=== PATIENT | female | born 1975 | race Two or more races ===

== ENCOUNTER 2017-11-13 10:03 | Emergency (ER) | payer MEDICAID ==
[2017-11-13] MEDS ORDERED: Ondansetron 4 MG/2 ML SDV IVPUSH ONE (10:23)
[2017-11-13] MEDS ORDERED: Sodium Chloride 0.9% 1,000 ML IV ONE (10:23)
--- NOTE | 2017-11-13 10:23 | EDM.PDOC ---
ED HPI GENERAL MEDICAL PROBLEM - General Chief Complaint: Headache Stated Complaint: HEADACHES Time Seen by Provider: 11/13/17 10:09 Source of Information: Reports: Patient History Limitations: Reports: No Limitations - History of Present Illness INITIAL COMMENTS - FREE TEXT/NARRATIVE: HISTORY AND PHYSICAL: History of present illness: Patient is a 42-year-old female who presents to the emergency room with complaints of migraine headaches. She states that every day for the past month she has had a constant migraine headache which is progressively getting worse. She been using [id number] migraine medications without much relief. She has photophobia, noise sensitivity and nauseated with smells. Denies any previous history of migraines. No familial history of migraines Review of systems: As per history of present illness and below otherwise all systems reviewed and negative. Past medical history: As per history of present illness and as reviewed below otherwise noncontributory. Surgical history: As per history of present illness and as reviewed below otherwise noncontributory. Social history: No reported history of drug or alcohol abuse. Family history: As per history of present illness and as reviewed below otherwise noncontributory. Physical exam: Gen.: Well-developed and well nourished 42-year-old female. Alert and oriented. Nontoxic appearing and in no acute distress. HEENT: Atraumatic, normocephalic, pupils reactive, negative for conjunctival pallor or scleral icterus, mucous membranes moist, throat clear, neck supple, nontender, trachea midline. No meningeal signs. No drooling or trismus. Lungs: Clear to auscultation, breath sounds equal bilaterally, chest nontender. Heart: S1S2, regular, negative for clicks, rubs, or JVD. Abdomen: Soft, nondistended, nontender. Negative for masses or hepatosplenomegaly. Negative for costovertebral tenderness. Pelvis: Stable nontender. Genitourinary: Deferred. Rectal: Deferred. Extremities: Atraumatic, moves all extremities per self without difficulty or deficits. Fully ambulatory without unsteady gait. Neurovascular unremarkable. Neuro: Awake, alert, oriented. Cranial nerves II through XII unremarkable. Cerebellum unremarkable. Motor and sensory unremarkable throughout. Exam nonfocal. Skin: Intact, warm, dry. No lesions or rashes noted. Head CT and lab work is within normal limits. Patient's headache has improved. Patient is very thin/petite. Blood pressures have been high 90s over 50s to 60s. The patient states that this is her normal BP range. She is comfortable going home. We will prescribe her Fiorinal and Zofran as rescue medications for home. We discussed in great leg the importance of her following up with her primary care provider. She is up here visiting her from [place]. She states she will see her primary doctor when she returns home. She denies any further questions at this time and is agreeable to plan of care. Diagnostics: CBC, CMP, Head CT Therapeutics: IV fluids, Toradol, Benadryl, Reglan, Zofran Impression: Migraine headache Plan: 1. Please take the rest of the day to rest. A prescription for Fiorinal and Zofran have been given to you. These are rescue medications for migraine headache. For further prescription/refill you will need to see your primary care doctor. 2. Please follow up with her primary care doctor within the next week. Return to the ED as needed and as discussed. Definitive disposition and diagnosis as appropriate pending reevaluation and review of above. 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 - Physical Exam Exam: See Below (See dictation) Course - Vital Signs Last Recorded V/S: Last Vital Signs Temp 97.6 F 11/13/17 10:11 Pulse 59 L 11/13/17 11:33 Resp 16 11/13/17 11:33 BP 95/58 L 11/13/17 11:33 Pulse Ox 100 11/13/17 11:33 - Orders/Labs/Meds Labs: Laboratory Tests 11/13/17 11/13/17 Range/Units 10:48 10:48 WBC 3.80 L (4.0-11.0) K/uL RBC 3.71 L (4.30-5.90) M/uL Hgb 11.6 L (12.0-16.0) g/dL Hct 34.3 L (36.0-46.0) % MCV 92.5 (80.0-98.0) fL MCH 31.3 (27.0-32.0) pg MCHC 33.8 (31.0-37.0) g/dL RDW Std Deviation 46.7 (28.0-62.0) fl RDW Coeff of [place]qu[place] 14 (11.0-15.0) % Plt Count 185 (150-400) K/uL MPV 10.40 (7.40-12.00) fL Neut % (Auto) 70.8 (48.0-80.0) % Lymph % (Auto) 23.2 (16.0-40.0) % [place] % (Auto) 5.0 (0.0-15.0) % Eos % (Auto) 0.5 (0.0-7.0) % Baso % (Auto) 0.5 (0.0-1.5) % Neut # (Auto) 2.7 (1.4-5.7) K/uL Lymph # (Auto) 0.9 (0.6-2.4) K/uL Deuel # (Auto) 0.2 (0.0-0.8) K/uL Eos # (Auto) 0.0 (0.0-0.7) K/uL Baso # (Auto) 0.0 (0.0-0.1) K/uL Nucleated RBC % 0.0 /100WBC Nucleated RBCs # 0 K/uL Sodium 140 (136-145) mmol/L Potassium 4.3 (3.5-5.1) mmol/L Chloride 109 H (98-107) mmol/L Carbon Dioxide 24.6 (21.0-32.0) mmol/L BUN 10 (7.0-18.0) mg/dL Creatinine 0.8 (0.6-1.0) mg/dL Est Cr Clr Drug Dosing 75.01 mL/min Estimated GFR (MDRD) > 60.0 ml/min Glucose 81 (74-106) mg/dL Calcium 8.1 L (8.5-10.1) mg/dL Total Bilirubin 0.8 (0.2-1.0) mg/dL AST 25 (15-37) IU/L ALT 32 (14-63) IU/L Alkaline Phosphatase 38 L (46-116) U/L Total Protein 6.1 L (6.4-8.2) g/dL Albumin 2.9 L (3.4-5.0) g/dL Globulin 3.2 (2.0-3.5) g/dL Albumin/Globulin Ratio 0.9 L (1.3-2.8) Meds: Medications Discontinued Medications Generic Name Dose Route Start Last Admin Trade Name Freq PRN Reason Stop Dose Admin Diphenhydramine HCl 50 mg 11/13/17 10:24 11/13/17 11:05 Benadryl IVPUSH 11/13/17 10:25 50 mg ONETIME ONE Administration Sodium Chloride 1,000 mls @ 999 mls/hr 11/13/17 10:23 11/13/17 10:53 Normal Saline IV 11/13/17 11:23 999 mls/hr STAT ONE Administration Ketorolac Tromethamine 30 mg 11/13/17 10:24 11/13/17 10:59 Toradol IVPUSH 11/13/17 10:25 30 mg ONETIME ONE Administration Metoclopramide HCl 10 mg 11/13/17 10:24 11/13/17 11:02 Reglan IVPUSH 11/13/17 10:25 10 mg ONETIME ONE Administration Ondansetron HCl 4 mg 11/13/17 10:23 11/13/17 10:55 Zofran IVPUSH 11/13/17 10:24 4 mg ONETIME ONE Administration Departure - Departure Time of Disposition: 11:53 Disposition: Home, Self-Care 01 Clinical Impression: Migraine - Discharge Information Instructions: Migraine Headache, [id number] Referrals: PCP,None [Primary Care Provider] - Forms: ED Department Discharge Additional Instructions: My general discharge The following information is given to patients seen in the emergency department who are being discharged to home. This information is to outline your options for follow-up care. We provide all patients seen in our emergency department with a follow-up referral. The need for follow-up, as well as the timing and circumstances, are variable depending upon the specifics of your emergency department visit. If you don't have a primary care physician on staff, we will provide you with a referral. We always advise you to contact your personal physician following an emergency department visit to inform them of the circumstance of the visit and for follow-up with them and/or the need for any referrals to a consulting specialist. The emergency department will also refer you to a specialist when appropriate. This referral assures that you have the opportunity for follow-up care with a specialist. All of these measure are taken in an effort to provide you with optimal care, which includes your follow-up. Under all circumstances we always encourage you to contact your private physician who remains a resource for coordinating your care. When calling for follow-up care, please make the office aware that this follow-up is from your recent emergency room visit. If for any reason you are refused follow-up, please contact the [facility] Emergency Department at and asked to speak to the emergency department charge nurse. [facility] [address] [place] [id number] 1. Please take the rest of the day to rest. A prescription for Fiorinal and Zofran have been given to you. These are rescue medications for migraine headache. For further prescription/refill you will need to see your primary care doctor. 2. Please follow up with her primary care doctor within the next week. Return to the ED as needed and as discussed.
[2017-11-13] MEDS ORDERED: Ketorolac 30 MG/ML SDV IVPUSH ONE (10:24)
[2017-11-13] MEDS ORDERED: Metoclopramide 10 MG/2 ML SDV IVPUSH ONE (10:24)
[2017-11-13] MEDS ORDERED: diphenhydrAMINE 50 MG/ML SDV IVPUSH ONE (10:24)
[2017-11-13 11:16] LABS: CHLORIDE,CL 109 mmol/L (98-107); SODIUM,NA 140 mmol/L (136-145)
--- NOTE | 2017-11-13 11:50 | CT ---
EXAMINATION: Non contrast CT head. Coronal and sagittal reformats. HISTORY: Pain FINDINGS: No evidence of intra or extra axial hemorrhage, mass, midline shift, hydrocephalus or edema. Orbits and globes are symmetric. No hypoattenuation changes in the major vascular territories to suggest acute infarct. No abnormal intracranial calcifications are detected. No evidence of substantial vascular calcificat ions. Paranasal sinuses and mastoid air cells are well aerated without substantial findings. Pituitary fossa appears unremarkable. Calvarium is intact. No evidence of skull fracture. IMPRESSION: No acute intracranial findings.
== END 2017-11-13 12:24 | disposition home or self-care (01) ==
LOC: MW.ED 10:03
DX: G43.909 Migraine, unspecified, not intractable, without status migrainosus (principal); Z88.2 Allergy status to sulfonamides; Z88.1 Allergy status to other antibiotic agents
CPT/HCPCS: 70450; 80053; 85025; 96361; 96374; 96375; 99284; J1200; J1885; J2405; J2765; J7040; 99283

== ENCOUNTER 2017-11-18 11:06 | Emergency (ER) | payer MEDICAID ==
[2017-11-18] MEDS ORDERED: Ketorolac 30 MG/ML SDV IVPUSH ONE (11:15)
[2017-11-18] MEDS ORDERED: Sodium Chloride 0.9% 1,000 ML IV ONE (11:15)
[2017-11-18] MEDS ORDERED: Metoclopramide 10 MG/2 ML SDV IV ONE (11:15)
[2017-11-18] MEDS ORDERED: diphenhydrAMINE 50 MG/ML SDV IVPUSH ONE (11:15)
[2017-11-18] MEDS ORDERED: Ondansetron 4 MG/2 ML SDV IVPUSH ONE (11:15)
--- NOTE | 2017-11-18 11:49 | EDM.PDOC ---
ED HPI GENERAL MEDICAL PROBLEM - General Chief Complaint: Headache Stated Complaint: MIGRANE/VOMITING Time Seen by Provider: 11/18/17 11:13 Source of Information: Reports: Patient History Limitations: Reports: No Limitations - History of Present Illness INITIAL COMMENTS - FREE TEXT/NARRATIVE: HISTORY AND PHYSICAL: History of present illness: Patient is a 42-year-old female who presents to the emergency room with complaints of migraine headache. She was seen in the emergency room by myself on 11/13/2017. At this time she received IV medications and head CT (negative reading). Upon discharge she was pain free and given a prescription for Fiorinal and Zofran. She states she was pain free for about 24 hours and woke up next day with a mild headache that progressively got worse. She took the Excedrin, Fiorinal and Zofran as directed but felt these medications made it "worse" and caused increased pain and nausea/vomiting. She is here today requesting additional pain management as her prescriptions "didn't work". She denies any recent head injury, trauma or falls. She denies change in vision , fever, chills, chest pain or shortness of breath. Denies any abdominal pain, diarrhea or constipation. States she is "so hungry but can't eat because I vomited everything up" due to nausea from her migraine. She is here from [place] visiting her . She reports she does return home on Friday. Review of systems: As per history of present illness and below otherwise all systems reviewed and negative. Past medical history: As per history of present illness and as reviewed below otherwise noncontributory. Surgical history: As per history of present illness and as reviewed below otherwise noncontributory. Social history: No reported history of drug or alcohol abuse. Family history: As per history of present illness and as reviewed below otherwise noncontributory. Physical exam: General: Developed and well nourished 42-year-old female. Alert and oriented. Nontoxic appearing and in no acute distress. HEENT: Atraumatic, normocephalic, pupils equal and reactive bilaterally, negative for conjunctival pallor or scleral icterus, mucous membranes moist, throat clear, neck supple, nontender, trachea midline. No drooling or trismus noted. No meningeal signs. Photophobia and noise sensitivity. Lungs: Clear to auscultation, breath sounds equal bilaterally, chest nontender. Heart: S1S2, regular rate and rhythm without overt murmur Abdomen: Soft, nondistended, nontender. Negative for masses or hepatosplenomegaly. Negative for costovertebral tenderness. Pelvis: Stable nontender. Genitourinary: Deferred. Rectal: Deferred. Skin: Intact, warm, dry. No lesions or rashes noted. Extremities: Atraumatic, moves all extremities per self without difficulty or deficits, negative for cords or calf pain. Neurovascular unremarkable. Neuro: Awake, alert, oriented. Cranial nerves II through XII unremarkable. Cerebellum unremarkable. Motor and sensory unremarkable throughout. Exam nonfocal. Notes: Did discuss in great detail the need for her to follow up with her primary care provider and likely a neurologist. Sounds as though she has migraine headaches that will require long-term management and/or medication management. Upon discharge the patient is adamant that she be discharged with home medication for her headache pain. I informed her that the management of migraines is not through narcotics and she felt she did not get relief with the Fiorinal, she could discontinue that medication at this time. I will give her Imitrex (Disp #6). Diagnostics: [] Therapeutics: IV fluid, Zofran, Reglan, Toradol, Benadryl Impression: Migraine headache Plan: 1. Please rest the remainder of the day in a dark quiet room. 2. Use your [id number] migraine medications. Zofran was prescribed during her last visit for nausea management. You do not need to continue the Fiorinal. 3. Further management should be done with your primary care provider or a neurologist. Return to the ED as needed and as discussed. Definitive disposition and diagnosis as appropriate pending reevaluation and review of above. Headache Pain Score (Numeric/FACES): 10 - Related Data Allergies Allergy/AdvReac Type Severity Reaction Status Date / Time sulfamethoxazole Allergy Difficulty Verified 11/18/17 11:15 [From ] Breathing trimethoprim [From ] Allergy Difficulty Verified 11/18/17 11:15 Breathing Home Meds: Home Meds Albuterol [Proventil] 2.5 mg INH ASDIRECTED PRN 11/13/17 [History] Fluticasone Propionate [Flovent] BID 11/13/17 [History] Past Medical History Respiratory History: Reports: Asthma Other Gastrointestinal History: pt states they are running tests on her liver back home Genitourinary History: Reports: UTI, Recurrent 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 - Physical Exam Exam: See Below (See dictation) Course - Vital Signs Last Recorded V/S: Last Vital Signs Temp 98.9 F 11/18/17 13:56 Pulse 96 11/18/17 13:56 Resp 16 11/18/17 13:56 BP 99/56 L 11/18/17 13:56 Pulse Ox 96 11/18/17 13:56 - Orders/Labs/Meds Meds: Medications Discontinued Medications Generic Name Dose Route Start Last Admin Trade Name Harpreetq PRN Reason Stop Dose Admin Diphenhydramine HCl 50 mg 11/18/17 11:15 11/18/17 11:57 Benadryl IVPUSH 11/18/17 11:16 50 mg ONETIME ONE Administration Sodium Chloride 1,000 mls @ 999 mls/hr 11/18/17 11:15 11/18/17 11:59 Normal Saline IV 11/18/17 12:15 999 mls/hr STAT ONE Administration Ketorolac Tromethamine 30 mg 11/18/17 11:15 11/18/17 11:57 Toradol IVPUSH 11/18/17 11:16 30 mg ONETIME ONE Administration Metoclopramide HCl 10 mg 11/18/17 11:15 11/18/17 11:58 Reglan IV 11/18/17 11:16 10 mg ONETIME ONE Administration Ondansetron HCl 4 mg 11/18/17 11:15 11/18/17 11:58 Zofran IVPUSH 11/18/17 11:16 4 mg ONETIME ONE Administration Departure - Departure Time of Disposition: 13:02 Disposition: Home, Self-Care 01 Clinical Impression: Migraine - Discharge Information Instructions: Recurrent Migraine Headache, [id number]-[id number] Referrals: PCP,Not In Area [Primary Care Provider] - Forms: ED Department Discharge Additional Instructions: The following information is given to patients seen in the emergency department who are being discharged to home. This information is to outline your options for follow-up care. We provide all patients seen in our emergency department with a follow-up referral. The need for follow-up, as well as the timing and circumstances, are variable depending upon the specifics of your emergency department visit. If you don't have a primary care physician on staff, we will provide you with a referral. We always advise you to contact your personal physician following an emergency department visit to inform them of the circumstance of the visit and for follow-up with them and/or the need for any referrals to a consulting specialist. The emergency department will also refer you to a specialist when appropriate. This referral assures that you have the opportunity for follow-up care with a specialist. All of these measure are taken in an effort to provide you with optimal care, which includes your follow-up. Under all circumstances we always encourage you to contact your private physician who remains a resource for coordinating your care. When calling for follow-up care, please make the office aware that this follow-up is from your recent emergency room visit. If for any reason you are refused follow-up, please contact the [facility] Emergency Department at and asked to speak to the emergency department charge nurse. [facility] Primary Care [address] [place] [id number] [facility] Specialty Care - Neurology Professional Building [address] [place] [address], [address] [place] [address] 1. Please rest the remainder of the day in a dark quiet room. 2. Use your pxzu-[id number] migraine medications. Zofran was prescribed during her last visit for nausea management. You do not need to continue the Fiorinal. 3. Further management should be done with your primary care provider or a neurologist. Return to the ED as needed and as discussed.
== END 2017-11-18 14:01 | disposition home or self-care (01) ==
LOC: MW.ED 11:06
DX: G43.909 Migraine, unspecified, not intractable, without status migrainosus (principal); Z88.2 Allergy status to sulfonamides; Z88.1 Allergy status to other antibiotic agents; Z79.899 Other long term (current) drug therapy
CPT/HCPCS: 96361; 96374; 96375; 99283; J1200; J1885; J2405; J2765; J7040

== ENCOUNTER 2018-02-03 08:45 | Emergency (ER) | payer MEDICAID ==
--- NOTE | 2018-02-03 09:08 | EDM.PDOC ---
ED HPI GENERAL MEDICAL PROBLEM - General Chief Complaint: Genitourinary Problem Stated Complaint: UTI OR EAR INFECTION ISSUES Time Seen by Provider: 02/03/18 08:50 - History of Present Illness INITIAL COMMENTS - FREE TEXT/NARRATIVE: HISTORY AND PHYSICAL: History of present illness: Patient 42-year-old female presents with a concern of frequency and discomfort with urination she denies chills nausea vomiting or back pain she denies Review of systems: As per history of present illness and below otherwise all systems reviewed and negative. Past medical history: As per history of present illness and as reviewed below otherwise noncontributory. Surgical history: As per history of present illness and as reviewed below otherwise noncontributory. Social history: No reported history of drug or alcohol abuse. Family history: As per history of present illness and as reviewed below otherwise noncontributory. Physical exam: HEENT: Atraumatic, normocephalic, pupils reactive, negative for conjunctival pallor or scleral icterus, mucous membranes moist, throat clear, neck supple, nontender, trachea midline. Lungs: Clear to auscultation, breath sounds equal bilaterally, chest nontender. Heart: S1S2, regular, negative for clicks, rubs, or JVD. Abdomen: Soft, nondistended, nontender. Negative for masses or hepatosplenomegaly. Negative for costovertebral tenderness. Pelvis: Stable nontender. Genitourinary: Deferred. Rectal: Deferred. Extremities: Atraumatic, negative for cords or calf pain. Neurovascular unremarkable. Neuro: Awake, alert, oriented. Cranial nerves II through XII unremarkable. Cerebellum unremarkable. Motor and sensory unremarkable throughout. Exam nonfocal. Diagnostics: UA urine culture and sensitivity UCG Therapeutics: None Impression: #1 urinary tract infection Definitive disposition and diagnosis as appropriate pending reevaluation and review of above. back Pain Score (Numeric/FACES): 7 - Related Data Allergies Allergy/AdvReac Type Severity Reaction Status Date / Time sulfamethoxazole Allergy Difficulty Verified 02/03/18 09:01 [From ] Breathing trimethoprim [From ] Allergy Difficulty Verified 02/03/18 09:01 Breathing Home Meds: Home Meds Albuterol [Proventil] 2.5 mg INH ASDIRECTED PRN 11/13/17 [History] Fluticasone Propionate [Flovent] 1 dose INH BID 11/13/17 [History] Past Medical History HEENT History: Reports: None Cardiovascular History: Reports: None Respiratory History: Reports: Asthma Gastrointestinal History: Reports: Other (See Below) Other Gastrointestinal History: pt states they are running tests on her liver back home Genitourinary History: Reports: UTI, Recurrent 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: Musculoskeletal History: Reports: None Neurological History: Reports: Migraines Psychiatric History: Reports: Anxiety Endocrine/Metabolic History: Reports: None Hematologic History: Reports: None Immunologic History: Reports: None Oncologic (Cancer) History: Reports: Bone, Other (See Below) Other Oncologic History: stomach cancer Dermatologic History: Reports: None - Infectious Disease History Infectious Disease History: Reports: Chicken Pox - Past Surgical History Head Surgeries/Procedures: Reports: None HEENT Surgical History: Reports: None Cardiovascular Surgical History: Reports: None Respiratory Surgical History: Reports: None GI Surgical History: Reports: None Female Surgical History: Reports: None Endocrine Surgical History: Reports: None Neurological Surgical History: Reports: None Musculoskeletal Surgical History: Reports: None Dermatological Surgical History: Reports: None Social & Family History - Family History Family Medical History: Noncontributory - Tobacco Use Smoking Status *Q: Never Smoker Second Hand Smoke Exposure: No - Caffeine Use Caffeine Use: Reports: None - Recreational Drug Use Recreational Drug Use: No ED ROS GENERAL - Review of Systems Review Of Systems: ROS reveals no pertinent complaints other than HPI. ED EXAM, GENERAL - Physical Exam Exam: See Below (See dictation) Course - Vital Signs Last Recorded V/S: Last Vital Signs Temp 35.7 C 02/03/18 09:02 Pulse 61 02/03/18 09:02 Resp 18 02/03/18 09:02 BP 109/54 L 02/03/18 09:02 Pulse Ox 100 02/03/18 09:02 - Orders/Labs/Meds Orders: Active Orders 24 hr Category Date Time Status CULTURE URINE [RM] Stat Lab 02/03/18 08:58 Ordered URINALYSIS W/MICROSCOPIC [UA W/MICROSCOPIC] [URIN] Stat Lab 02/03/18 08:46 Ordered Departure - Departure Time of Disposition: 09:08 Disposition: Home, Self-Care 01 Condition: Good Clinical Impression: UTI, Urinary tract infectious disease - Discharge Information Referrals: PCP,Not In Area [Primary Care Provider] - Additional Instructions: The following information is given to patients seen in the emergency department who are being discharged to home. This information is to outline your options for follow-up care. We provide all patients seen in our emergency department with a follow-up referral. The need for follow-up, as well as the timing and circumstances, are variable depending upon the specifics of your emergency department visit. If you don't have a primary care physician on staff, we will provide you with a referral. We always advise you to contact your personal physician following an emergency department visit to inform them of the circumstance of the visit and for follow-up with them and/or the need for any referrals to a consulting specialist. The emergency department will also refer you to a specialist when appropriate. This referral assures that you have the opportunity for followup care with a specialist. All of these measure are taken in an effort to provide you with optimal care, which includes your followup. Under all circumstances we always encourage you to contact your private physician who remains a resource for coordinating your care. When calling for followup care, please make the office aware that this follow-up is from your recent emergency room visit. If for any reason you are refused follow-up, please contact the [facility] emergency department at and asked to speak to the emergency department charge nurse. Cipro Pyridium as prescribed push fluids follow primary medical doctor as needed as discussed and return as needed as discussed - My Orders Last 24 Hours: My Active Orders 02/03/18 08:46 URINALYSIS W/MICROSCOPIC [UA W/MICROSCOPIC] [URIN] Stat 02/03/18 08:58 CULTURE URINE [RM] Stat - Assessment/Plan Last 24 Hours: My Active Orders 02/03/18 08:46 URINALYSIS W/MICROSCOPIC [UA W/MICROSCOPIC] [URIN] Stat 02/03/18 08:58 CULTURE URINE [RM] Stat
== END 2018-02-03 09:55 | disposition home or self-care (01) ==
LOC: MW.ED 08:45
DX: N39.0 Urinary tract infection, site not specified (principal); J45.909 Unspecified asthma, uncomplicated; Z88.1 Allergy status to other antibiotic agents; Z79.899 Other long term (current) drug therapy; Z87.440 Personal history of urinary (tract) infections
CPT/HCPCS: 81001; 81025; 87086; 87088; 87186; 99282; 99283

== ENCOUNTER 2018-05-20 09:58 | Emergency (ER) | payer MEDICAID ==
[2018-05-20] MEDS ORDERED: Ketorolac 60 MG/2 ML SDV IM ONE (10:18)
--- NOTE | 2018-05-20 10:18 | EDM.PDOC ---
ED HPI GENERAL MEDICAL PROBLEM - General Chief Complaint: Upper Extremity Injury/Pain Stated Complaint: FINGER ON LT HAND HURTS Time Seen by Provider: 05/20/18 10:07 Source of Information: Reports: Patient History Limitations: Reports: No Limitations - History of Present Illness INITIAL COMMENTS - FREE TEXT/NARRATIVE: HISTORY AND PHYSICAL: History of present illness: Patient is a 43-year-old female who presents to the emergency room with complaints of left index finger pain and anxiety for several weeks. She states that she has intermittent pain to her left index finger which she believes is arthritis. She denies any injury, trauma or falls of the affected extremity. She states the pain is localized to the finger but does intermittently go throughout her hand. She has no weakness, numbness, tingling or difficulty with range of motion. There is time that it is better or worse. Does not affect her ADLs. She reports that she has recently lost her son and she is frequently "worried about him". She states she does frequently have "panic attacks" and is concerned that her anxiety may cause her to have a heart attack. She states when she has these panic attacks she feel her heart racing and feels very anxious about her son. This lasts for a few minutes and usually resolves when she sits down and is able to calm herself down. She has no previous history of heart disease. She denies any fever, chills, chest pain, shortness of breath or cough. She denies any abdominal pain, nausea, vomiting, diarrhea or constipation. Review of systems: As per history of present illness and below otherwise all systems reviewed and negative. Past medical history: As per history of present illness and as reviewed below otherwise noncontributory. Surgical history: As per history of present illness and as reviewed below otherwise noncontributory. Social history: No reported history of drug or alcohol abuse. Family history: As per history of present illness and as reviewed below otherwise noncontributory. Physical exam: General: Well-developed and well-nourished 43-year-old female. Alert and oriented. Nontoxic appearing and in no acute distress. HEENT: Atraumatic, normocephalic, pupils equal and reactive bilaterally, negative for conjunctival pallor or scleral icterus, mucous membranes moist, throat clear, neck supple, nontender, trachea midline. No drooling or trismus noted. No meningeal signs Lungs: Clear to auscultation, breath sounds equal bilaterally, chest nontender. Heart: S1S2, regular rate and rhythm without overt murmur Abdomen: Soft, nondistended, nontender. Negative for masses or hepatosplenomegaly. Negative for costovertebral tenderness. Pelvis: Stable nontender. Genitourinary: Deferred. Rectal: Deferred. Skin: Intact, warm, dry. No lesions or rashes noted. Extremities: Atraumatic, negative for cords or calf pain. Neurovascular unremarkable. Neuro: Awake, alert, oriented. Cranial nerves II through XII unremarkable. Cerebellum unremarkable. Motor and sensory unremarkable throughout. Exam nonfocal. Notes: Patient currently is not having any symptoms of anxiety. She denies any chest pain, shortness of breath or being symptomatic. We discussed then for establishing care with a primary care provider as a May follow her through this time of grief. At this time and not to give her any prescriptions for anxiety medications as she has not tried any grief counseling or other supportive care measures. We did discuss these in detail and is requesting a set up an appointment. She is able to get into [facility] June 24 at 845AM. Her x- ray reading is benign. I will give her some diclofenac for her discomfort. She can readdress this with her primary care provider at her next visit. She denies any further questions or concerns. Will be discharged to home. Diagnostics: EKG, finger x-ray Therapeutics: Toradol 60 mg IM Prescription: Diclofenac 50mg PRN (#20) Impression: Finger Pain Anxiety Plan: 1. An appointment was made for you to establish care with a primary care provider for June 24, 2018 at [facility] at 0845am. And/or you could call [facility] ([facility]) to see if your information could transfer up here from [place]. To establish care with them. Their phone number: 2. You may use the diclofenac 50 mg as needed for pain management. Take this with food do not take any additional NSAID such as ibuprofen or Aleve. 3. May want to consider grief counseling for your anxiety. There are several services in [facility] that accept walk-ins. 4. Return to the ED as needed and as discussed. Definitive disposition and diagnosis as appropriate pending reevaluation and review of above. Duration: Chronic left addi finger Pain Score (Numeric/FACES): 7 - Related Data Allergies Allergy/AdvReac Type Severity Reaction Status Date / Time sulfamethoxazole Allergy Difficulty Verified 05/20/18 10:05 [From ] Breathing trimethoprim [From ] Allergy Difficulty Verified 05/20/18 10:05 Breathing Home Meds: Home Meds Albuterol [Proventil] 2.5 mg INH ASDIRECTED PRN 11/13/17 [History] Fluticasone Propionate [Flovent] 1 dose INH BID 11/13/17 [History] Diclofenac Sodium [Voltaren] 50 mg PO TID PRN #20 tab.ec 05/20/18 [Rx] Past Medical History HEENT History: Reports: None Cardiovascular History: Reports: None Respiratory History: Reports: Asthma Gastrointestinal History: Reports: Other (See Below) Other Gastrointestinal History: pt states they are running tests on her liver back home Genitourinary History: Reports: UTI, Recurrent 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: Musculoskeletal History: Reports: None Neurological History: Reports: Migraines Psychiatric History: Reports: Anxiety Endocrine/Metabolic History: Reports: None Hematologic History: Reports: None Immunologic History: Reports: None Oncologic (Cancer) History: Reports: Bone, Other (See Below) Other Oncologic History: stomach cancer Dermatologic History: Reports: None - Infectious Disease History Infectious Disease History: Reports: Chicken Pox - Past Surgical History Head Surgeries/Procedures: Reports: None HEENT Surgical History: Reports: None Cardiovascular Surgical History: Reports: None Respiratory Surgical History: Reports: None GI Surgical History: Reports: None Female Surgical History: Reports: None Endocrine Surgical History: Reports: None Neurological Surgical History: Reports: None Musculoskeletal Surgical History: Reports: None Oncologic Surgical History: Reports: None Dermatological Surgical History: Reports: None Social & Family History - Family History Family Medical History: Noncontributory - Tobacco Use Smoking Status *Q: Never Smoker Second Hand Smoke Exposure: No - Caffeine Use Caffeine Use: Reports: None - Recreational Drug Use Recreational Drug Use: No Review of Systems - Review of Systems Review Of Systems: ROS reveals no pertinent complaints other than HPI. ED EXAM, GENERAL - Physical Exam Exam: See Below (See dictation) Course - Vital Signs Last Recorded V/S: Last Vital Signs Temp 95.5 F 05/20/18 10:06 Pulse 60 05/20/18 10:06 Resp 18 05/20/18 10:06 BP 99/66 05/20/18 10:06 Pulse Ox 99 05/20/18 10:06 - Orders/Labs/Meds Orders: Active Orders 24 hr Category Date Time Status EKG Documentation Completion [RC] STAT Care 05/20/18 10:12 Active Fingers Second Digit Lt F1 [CR] Stat Exams 05/20/18 10:18 Taken Meds: Medications Discontinued Medications Generic Name Dose Route Start Last Admin Trade Name Freq PRN Reason Stop Dose Admin Ketorolac Tromethamine 60 mg 05/20/18 10:18 05/20/18 10:34 Toradol IM 05/20/18 10:19 60 mg ONETIME ONE Administration Departure - Departure Time of Disposition: 10:42 Disposition: Home, Self-Care 01 Clinical Impression: Anxiety, Finger pain, left - Discharge Information Prescriptions: Diclofenac Sodium [Voltaren] 50 mg PO TID PRN #20 tab.ec PRN Reason: Pain Referrals: Hernan Fuller MD [Resident] - 06/24/18 8:45 am (Please arrive 15 minutes early for paperwork) PCP,None [Primary Care Provider] - Forms: ED Department Discharge Additional Instructions: The following information is given to patients seen in the emergency department who are being discharged to home. This information is to outline your options for follow-up care. We provide all patients seen in our emergency department with a follow-up referral. The need for follow-up, as well as the timing and circumstances, are variable depending upon the specifics of your emergency department visit. If you don't have a primary care physician on staff, we will provide you with a referral. We always advise you to contact your personal physician following an emergency department visit to inform them of the circumstance of the visit and for follow-up with them and/or the need for any referrals to a consulting specialist. The emergency department will also refer you to a specialist when appropriate. This referral assures that you have the opportunity for follow-up care with a specialist. All of these measure are taken in an effort to provide you with optimal care, which includes your follow-up. Under all circumstances we always encourage you to contact your private physician who remains a resource for coordinating your care. When calling for follow-up care, please make the office aware that this follow-up is from your recent emergency room visit. If for any reason you are refused follow-up, please contact the [facility] Emergency Department at and asked to speak to the emergency department charge nurse. [facility] [address] [place] [address] [facility] [address] [place] [address] [facility] ([facility]) [address] [place] [address] Phone: [phone] 1. An appointment was made for you to establish care with a primary care provider for June 24, 2018 at [facility] at 0845am. And/or you could call [facility] ([facility]) to see if your information could transfer up here from [place]. To establish care with them. Their phone number: 2. You may use the diclofenac 50 mg as needed for pain management. Take this with food do not take any additional NSAID such as ibuprofen or Aleve. 3. May want to consider grief counseling for your anxiety. There are several services in [facility] that accept walk-ins. 4. Return to the ED as needed and as discussed. - My Orders Last 24 Hours: My Active Orders 05/20/18 10:12 EKG Documentation Completion [RC] STAT 05/20/18 10:18 Fingers Second Digit Lt F1 [CR] Stat - Assessment/Plan Last 24 Hours: My Active Orders 05/20/18 10:12 EKG Documentation Completion [RC] STAT 05/20/18 10:18 Fingers Second Digit Lt F1 [CR] Stat
--- NOTE | 2018-05-20 11:52 | CR ---
EXAMINATION: Left hand, second digit HISTORY: Pain COMPARISON: None TECHNIQUE: 3 views FINDINGS: There is no acute osseous abnormality, dislocation, or fracture. Bone mineralization and loraine int spaces are preserved. No focal soft tissue swelling. IMPRESSION: No acute osseous abnormalities.
== END 2018-05-20 11:35 | disposition home or self-care (01) ==
LOC: MW.ED 09:58
DX: M79.645 Pain in left finger(s) (principal); F41.9 Anxiety disorder, unspecified; Z88.2 Allergy status to sulfonamides
CPT/HCPCS: 73140; 96372; 99283; J1885

== ENCOUNTER 2018-09-16 13:46 | Emergency (ER) | payer MEDICAID ==
--- NOTE | 2018-09-16 14:26 | EDM.PDOC ---
ED HPI GENERAL MEDICAL PROBLEM - General Chief Complaint: Skin Complaint Stated Complaint: BREAST PAIN Time Seen by Provider: 09/16/18 13:52 Source of Information: Reports: Patient History Limitations: Reports: No Limitations - History of Present Illness INITIAL COMMENTS - FREE TEXT/NARRATIVE: HISTORY AND PHYSICAL: History of present illness: Patient is a 43-year-old female who presents to the emergency room with complaints of pain to her right nipple. She states that the area has been slightly reddened, painful to touch and some soft tissue swelling. No discharge from the nipple. She denies any fever, chills, chest pain, shortness of breath or cough. Denies any abdominal pain, nausea, vomiting, diarrhea or constipation. She has been eating and drinking appropriately. 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 She states she has not seen a primary care provider or woman's health provider in one to 2 years as she moved here from [place]. Review of systems: As per history of present illness and below otherwise all systems reviewed and negative. Past medical history: As per history of present illness and as reviewed below otherwise noncontributory. Surgical history: As per history of present illness and as reviewed below otherwise noncontributory. Social history: See social history for further information Family history: As per history of present illness and as reviewed below otherwise noncontributory. Physical exam: General: Well-developed and well-nourished 43-year-old female. Alert and oriented. Nontoxic appearing and in no acute distress. HEENT: Atraumatic, normocephalic, pupils equal and reactive bilaterally, negative for conjunctival pallor or scleral icterus, mucous membranes moist, TMs normal bilaterally, throat clear, neck supple, nontender, trachea midline. No drooling or trismus noted. No meningeal signs. No hot potato voice noted. Lungs: Clear to auscultation, breath sounds equal bilaterally, chest nontender. I did obtain consent from the patient to perform a manual exam. Patient has minimal tissue to the breast bilaterally. Breast appear symmetrical bilaterally. No lesions, lumps or soft tissue mass felt. Unable to express any drainage from the nipple. There is no dimpling noted. She has some minor redness noted at the 1 to 3 o'clock position to the external nipple. Heart: S1S2, regular rate and rhythm without overt murmur Abdomen: Soft, nondistended, nontender. Negative for masses or hepatosplenomegaly. Negative for costovertebral tenderness. Pelvis: Stable nontender. Genitourinary: Deferred. Rectal: Deferred. Skin: Intact, warm, dry. No lesions or rashes noted. Extremities: Atraumatic, negative for cords or calf pain. Neurovascular unremarkable. Neuro: Awake, alert, oriented. Cranial nerves II through XII unremarkable. Cerebellum unremarkable. Motor and sensory unremarkable throughout. Exam nonfocal. Notes: Unable to appreciate any mass, abscess or area of concern that would indicate needing imaging at this time. There is a slight area of redness which could be an early cellulitis. I will give her antibiotics and have her follow up closely with a primary care provider in the next 1-2 days. She voices understanding and is agreeable to plan of care. Denies any further questions or concerns at this time. Diagnostics: CBC Prescription: Keflex Impression: Possible early cellulitis, right breast Plan: 1. Keep the area clean and dry. 2. Tylenol and/or ibuprofen as needed for pain management. 3. 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 Return to the ED as needed and as discussed Definitive disposition and diagnosis as appropriate pending reevaluation and review of above. right breast Pain Score (Numeric/FACES): 5 - Related Data Allergies Allergy/AdvReac Type Severity Reaction Status Date / Time sulfamethoxazole Allergy Difficulty Verified 09/16/18 14:14 [From ] Breathing trimethoprim [From ] Allergy Difficulty Verified 09/16/18 14:14 Breathing Home Meds: Home Meds . 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: Musculoskeletal History: Reports: None Neurological History: Reports: Migraines Psychiatric History: Reports: Anxiety Endocrine/Metabolic History: Reports: None Hematologic History: Reports: None Immunologic History: Reports: None Oncologic (Cancer) History: Reports: Bone, Other (See Below) Other Oncologic History: stomach cancer Dermatologic History: Reports: None - Infectious Disease History Infectious Disease History: Reports: Chicken Pox - Past Surgical History Head Surgeries/Procedures: Reports: None HEENT Surgical History: Reports: None Cardiovascular Surgical History: Reports: None Respiratory Surgical History: Reports: None GI Surgical History: Reports: None Female Surgical History: Reports: None Endocrine Surgical History: Reports: None Neurological Surgical History: Reports: None Musculoskeletal Surgical History: Reports: None Oncologic Surgical History: Reports: None Dermatological Surgical History: Reports: None Social & Family History - Family History Family Medical History: Noncontributory - Tobacco Use Smoking Status *Q: Never Smoker Second Hand Smoke Exposure: No - Caffeine Use Caffeine Use: Reports: None - Recreational Drug Use Recreational Drug Use: No ED ROS GENERAL - Review of Systems Review Of Systems: ROS reveals no pertinent complaints other than HPI. ED EXAM, SKIN/RASH Exam: See Below (See dictation) Course - Vital Signs Last Recorded V/S: Last Vital Signs Temp 98.1 F 09/16/18 14:13 Pulse 60 09/16/18 14:13 Resp 18 09/16/18 14:13 BP 105/57 L 09/16/18 14:13 Pulse Ox 98 09/16/18 14:13 - Orders/Labs/Meds Labs: Laboratory Tests 09/16/18 Range/Units 14:27 WBC 4.40 (4.0-11.0) K/uL RBC 3.90 L (4.30-5.90) M/uL Hgb 12.1 (12.0-16.0) g/dL Hct 36.7 (36.0-46.0) % MCV 94.1 (80.0-98.0) fL MCH 31.0 (27.0-32.0) pg MCHC 33.0 (31.0-37.0) g/dL RDW Std Deviation 44.3 (28.0-62.0) fl RDW Coeff of [place] 13 (11.0-15.0) % Plt Count 216 (150-400) K/uL MPV 10.20 (7.40-12.00) fL Neut % (Auto) 56.5 (48.0-80.0) % Lymph % (Auto) 33.9 (16.0-40.0) % Barron % (Auto) 7.5 (0.0-15.0) % Eos % (Auto) 1.6 (0.0-7.0) % Baso % (Auto) 0.5 (0.0-1.5) % Neut # (Auto) 2.5 (1.4-5.7) K/uL Lymph # (Auto) 1.5 (0.6-2.4) K/uL Barron # (Auto) 0.3 (0.0-0.8) K/uL Eos # (Auto) 0.1 (0.0-0.7) K/uL Baso # (Auto) 0.0 (0.0-0.1) K/uL Nucleated RBC % 0.0 /100WBC Nucleated RBCs # 0 K/uL Departure - Departure Time of Disposition: 14:26 Disposition: Home, Self-Care 01 Clinical Impression: Cellulitis Qualifiers: Site of cellulitis: trunk Site of cellulitis of trunk: chest wall Qualified Code(s): L03.313 - Cellulitis of chest wall - Discharge Information Instructions: Cellulitis, Adult, [id number] Referrals: PCP,None [Primary Care Provider] - Forms: ED Department Discharge Additional Instructions: The following information is given to patients seen in the emergency department who are being discharged to home. This information is to outline your options for follow-up care. We provide all patients seen in our emergency department with a follow-up referral. The need for follow-up, as well as the timing and circumstances, are variable depending upon the specifics of your emergency department visit. If you don't have a primary care physician on staff, we will provide you with a referral. We always advise you to contact your personal physician following an emergency department visit to inform them of the circumstance of the visit and for follow-up with them and/or the need for any referrals to a consulting specialist. The emergency department will also refer you to a specialist when appropriate. This referral assures that you have the opportunity for follow-up care with a specialist. All of these measure are taken in an effort to provide you with optimal care, which includes your follow-up. Under all circumstances we always encourage you to contact your private physician who remains a resource for coordinating your care. When calling for follow-up care, please make the office aware that this follow-up is from your recent emergency room visit. If for any reason you are refused follow-up, please contact the [facility] Emergency Department at and asked to speak to the emergency department charge nurse. [facility] [address] [place] [address] [address] 1. Keep the area clean and dry. 2. Tylenol and/or ibuprofen as needed for pain management. 3. 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 Return to the ED as needed and as discussed
== END 2018-09-16 14:52 | disposition home or self-care (01) ==
LOC: MW.ED 13:46
DX: L03.313 Cellulitis of chest wall (principal); Z88.2 Allergy status to sulfonamides
CPT/HCPCS: 36415; 85025; 99283

== ENCOUNTER 2018-11-24 07:37 | Emergency (ER) | payer MEDICAID ==
[2018-11-24] MEDS ORDERED: Ibuprofen 600 MG Tab PO ONE (08:05)
--- NOTE | 2018-11-24 08:05 | EDM.PDOC ---
ED HPI GENERAL MEDICAL PROBLEM - General Chief Complaint: ENT Problem Stated Complaint: SORE THROAT, HURTS TO SWALLOW Time Seen by Provider: 11/24/18 07:43 Source of Information: Reports: Patient History Limitations: Reports: No Limitations - History of Present Illness INITIAL COMMENTS - FREE TEXT/NARRATIVE: History of present illness: []Patient has had 2 days of body aches, cough, congestion, severe sore throat and eye swelling. She went to work yesterday and started feeling worse. Patient denies any fevers, chills and states she does suffer from allergies but the sore throat is different. Review of systems: As per history of present illness and below otherwise all systems reviewed and negative. Past medical history: As per history of present illness and as reviewed below otherwise noncontributory. Surgical history: As per history of present illness and as reviewed below otherwise noncontributory. Social history: No reported history of drug or alcohol abuse. Family history: As per history of present illness and as reviewed below otherwise noncontributory. Physical exam: General: Well developed, well nourished in NAD HEENT: Atraumatic, normocephalic, pupils reactive, negative for conjunctival drainage, pallor or scleral icterus, mucous membranes moist, throat erythematous without exudate, neck supple, nontender, trachea midline. No stridor, Lungs: Clear to auscultation, breath sounds equal bilaterally, chest nontender. Heart: S1S2, regular, negative for clicks, rubs, or JVD. Abdomen: NABS, Soft, nondistended, nontender. Negative for masses or hepatosplenomegaly. Negative for costovertebral tenderness. Pelvis: Stable nontender. Genitourinary: Deferred. Rectal: Deferred. Extremities: Atraumatic, negative for cords or calf pain. Neurovascular unremarkable. Neuro: Awake, alert, oriented. Cranial nerves II through XII unremarkable. Cerebellum unremarkable. Motor and sensory unremarkable throughout. Exam nonfocal. Skin:warm and dry Diagnostics: Influenza, strep-both negative Therapeutics: Ibuprofen ED Course: Stable Impression: Viral URI with cough Prescriptions: None Plan: Ibuprofen, Tylenol, Zyrtec, albuterol as directed, follow up with primary care return if symptoms worsen or change. Definitive disposition and diagnosis as appropriate pending reevaluation and review of above. throat Pain Score (Numeric/FACES): 7 - Related Data Allergies Allergy/AdvReac Type Severity Reaction Status Date / Time sulfamethoxazole Allergy Difficulty Verified 11/24/18 07:47 [From Septra] Breathing trimethoprim [From Septra] Allergy Difficulty Verified 11/24/18 07:47 Breathing Home Meds: Home Meds Albuterol [Ventolin HFA] 2 puff INH Q4HR PRN #1 inhaler 11/24/18 [Rx] Past Medical History - Past Health History Medical/Surgical History: Denies Medical/Surgical History HEENT History: Reports: None Cardiovascular History: Reports: None Respiratory History: Reports: Asthma Gastrointestinal History: Reports: Other (See Below) Other Gastrointestinal History: pt states they are running tests on her liver back home Genitourinary History: Reports: UTI, Recurrent 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: Musculoskeletal History: Reports: None Neurological History: Reports: Migraines Psychiatric History: Reports: Anxiety Endocrine/Metabolic History: Reports: None Hematologic History: Reports: None Immunologic History: Reports: None Oncologic (Cancer) History: Reports: Bone, Other (See Below) Other Oncologic History: stomach cancer Dermatologic History: Reports: None - Infectious Disease History Infectious Disease History: Reports: Chicken Pox - Past Surgical History Head Surgeries/Procedures: Reports: None HEENT Surgical History: Reports: None Cardiovascular Surgical History: Reports: None Respiratory Surgical History: Reports: None GI Surgical History: Reports: None Female Surgical History: Reports: None Endocrine Surgical History: Reports: None Neurological Surgical History: Reports: None Musculoskeletal Surgical History: Reports: None Oncologic Surgical History: Reports: None Dermatological Surgical History: Reports: None Social & Family History - Family History Family Medical History: Noncontributory - Tobacco Use Smoking Status *Q: Never Smoker - Caffeine Use Caffeine Use: Reports: None - Recreational Drug Use Recreational Drug Use: No ED ROS ENT - Review of Systems Review Of Systems: ROS reveals no pertinent complaints other than HPI. ED EXAM, ENT - Physical Exam Exam: See Below (See history of present illness) Course - Vital Signs Last Recorded V/S: Last Vital Signs Temp 96.7 F 11/24/18 07:47 Pulse 89 11/24/18 07:47 Resp 20 11/24/18 07:47 BP 112/68 11/24/18 07:47 Pulse Ox 96 11/24/18 07:47 - Orders/Labs/Meds Orders: Active Orders 24 hr Category Date Time Status CULTURE STREP A CONFIRMATION [RM] Stat Lab 11/24/18 07:50 Results STREP SCRN A RAPID W CULT CONF [RM] Stat Lab 11/24/18 07:50 Results Meds: Medications Discontinued Medications Generic Name Dose Route Start Last Admin Trade Name Freq PRN Reason Stop Dose Admin Ibuprofen 600 mg 11/24/18 08:05 11/24/18 08:24 Motrin PO 11/24/18 08:06 600 mg ONETIME ONE Administration Departure - Departure Time of Disposition: 08:27 Disposition: Home, Self-Care 01 Condition: Good Clinical Impression: Viral URI with cough - Discharge Information *PRESCRIPTION DRUG MONITORING PROGRAM REVIEWED*: No *COPY OF PRESCRIPTION DRUG MONITORING REPORT IN PATIENT GIANA: No Prescriptions: Albuterol [Ventolin HFA] 2 puff INH Q4HR PRN #1 inhaler PRN Reason: Shortness Of Breath Referrals: PCP,None [Primary Care Provider] - Forms: ED Department Discharge Additional Instructions: The following information is given to patients seen in the emergency department who are being discharged to home. This information is to outline your options for follow-up care. We provide all patients seen in our emergency department with a follow-up referral. The need for follow-up, as well as the timing and circumstances, are variable depending upon the specifics of your emergency department visit. If you don't have a primary care physician on staff, we will provide you with a referral. We always advise you to contact your personal physician following an emergency department visit to inform them of the circumstance of the visit and for follow-up with them and/or the need for any referrals to a consulting specialist. The emergency department will also refer you to a specialist when appropriate. This referral assures that you have the opportunity for follow-up care with a specialist. All of these measure are taken in an effort to provide you with optimal care, which includes your follow-up. Under all circumstances we always encourage you to contact your private physician who remains a resource for coordinating your care. When calling for follow-up care, please make the office aware that this follow-up is from your recent emergency room visit. If for any reason you are refused follow-up, please contact the [facility] Emergency Department at and asked to speak to the emergency department charge nurse. Take meds as directed, follow up with your primary care physician, return to ER if symptoms worsen or change. [facility] [address] [place] [id number] - My Orders Last 24 Hours: My Active Orders 11/24/18 07:50 CULTURE STREP A CONFIRMATION [RM] Stat STREP SCRN A RAPID W CULT CONF [RM] Stat - Assessment/Plan Last 24 Hours: My Active Orders 11/24/18 07:50 CULTURE STREP A CONFIRMATION [RM] Stat STREP SCRN A RAPID W CULT CONF [RM] Stat
== END 2018-11-24 09:00 | disposition home or self-care (01) ==
LOC: MW.ED 07:37
DX: J06.9 Acute upper respiratory infection, unspecified (principal); J45.909 Unspecified asthma, uncomplicated; Z88.2 Allergy status to sulfonamides; Z88.1 Allergy status to other antibiotic agents
CPT/HCPCS: 87081; 87804; 87880; 99283; A9270

== ENCOUNTER 2018-12-16 08:17 | Emergency (ER) | payer OTHER, MEDICAID ==
[2018-12-16] MEDS ORDERED: Sodium Chloride 0.9% 1,000 ML IV ONE (08:19)
--- NOTE | 2018-12-16 08:20 | EDM.PDOC ---
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 Past medical history: As per history of present illness and as reviewed below otherwise noncontributory. Surgical history: As per history of present illness and as reviewed below otherwise noncontributory. Social history: No reported history of drug or alcohol abuse. Family history: As per history of present illness and as reviewed below otherwise noncontributory. Physical exam: HEENT: Atraumatic, normocephalic, pupils reactive, negative for conjunctival pallor or scleral icterus, mucous membranes moist, throat clear, neck supple, nontender, trachea midline. Lungs: Clear to auscultation, breath sounds equal bilaterally, chest nontender. Heart: S1S2, regular, negative for clicks, rubs, or JVD. Abdomen: Soft, nondistended, nontender. Negative for masses or hepatosplenomegaly. Negative for costovertebral tenderness. Pelvis: Stable nontender. Genitourinary: Deferred. Rectal: Deferred. Extremities: Atraumatic, negative for cords or calf pain. Neurovascular unremarkable. Neuro: Awake, alert, oriented. Cranial nerves II through XII unremarkable. Cerebellum unremarkable. Motor and sensory unremarkable throughout. Exam nonfocal. Diagnostics: [CBC CMP troponin lipase UA hCG ]In flat and upright Therapeutics: Toradol 10 mg by mouth 3 times a day when necessary #15 no refill ] Impression: abdominal pain ] Definitive disposition and diagnosis as appropriate pending reevaluation and review of above. Epigastric Pain Score (Numeric/FACES): 7 - Related Data Allergies Allergy/AdvReac Type Severity Reaction Status Date / Time sulfamethoxazole Allergy Difficulty Verified 12/16/18 08:33 [From Aprra] Breathing trimethoprim [From ] Allergy Difficulty Verified 12/16/18 08:33 Breathing Home Meds: Home Meds . 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: Musculoskeletal History: Reports: None Neurological History: Reports: Migraines Psychiatric History: Reports: Anxiety Endocrine/Metabolic History: Reports: None Hematologic History: Reports: None Immunologic History: Reports: None Oncologic (Cancer) History: Reports: Bone, Other (See Below) Other Oncologic History: stomach cancer Dermatologic History: Reports: None - Infectious Disease History Infectious Disease History: Reports: Chicken Pox - Past Surgical History Head Surgeries/Procedures: Reports: None HEENT Surgical History: Reports: None Cardiovascular Surgical History: Reports: None Respiratory Surgical History: Reports: None GI Surgical History: Reports: None Female Surgical History: Reports: None Endocrine Surgical History: Reports: None Neurological Surgical History: Reports: None Musculoskeletal Surgical History: Reports: None Oncologic Surgical History: Reports: None Dermatological Surgical History: Reports: None Social & Family History - Family History Family Medical History: Noncontributory - Caffeine Use Caffeine Use: Reports: None ED ROS GENERAL - Review of Systems Review Of Systems: See Below ED EXAM, GENERAL - Physical Exam Exam: See Below Course - Vital Signs Last Recorded V/S: Last Vital Signs Temp 96.9 F 12/16/18 08:30 Pulse 66 12/16/18 08:30 Resp 18 12/16/18 08:30 BP 106/60 12/16/18 08:30 Pulse Ox 95 12/16/18 08:30 - Orders/Labs/Meds Orders: Active Orders 24 hr Category Date Time Status HCG QUALITATIVE,URINE [URCHEM] Stat Lab 12/16/18 08:19 Ordered UA RFX MIRACLE AND CULT IF INDIC [URIN] Stat Lab 12/16/18 08:19 Ordered Labs: Laboratory Tests 12/16/18 12/16/18 Range/Units 08:35 08:35 WBC 4.05 (4.0-11.0) K/uL RBC 4.36 (4.30-5.90) M/uL Hgb 13.2 (12.0-16.0) g/dL Hct 40.7 (36.0-46.0) % MCV 93.3 (80.0-98.0) fL MCH 30.3 (27.0-32.0) pg MCHC 32.4 (31.0-37.0) g/dL RDW Std Deviation 44.3 (28.0-62.0) fl RDW Coeff of [place] 13 (11.0-15.0) % Plt Count 238 (150-400) K/uL MPV 10.80 (7.40-12.00) fL Neut % (Auto) 59.1 (48.0-80.0) % Lymph % (Auto) 31.6 (16.0-40.0) % [place] % (Auto) 8.1 (0.0-15.0) % Eos % (Auto) 1.0 (0.0-7.0) % Baso % (Auto) 0.2 (0.0-1.5) % Neut # (Auto) 2.4 (1.4-5.7) K/uL Lymph # (Auto) 1.3 (0.6-2.4) K/uL [place] # (Auto) 0.3 (0.0-0.8) K/uL Eos # (Auto) 0.0 (0.0-0.7) K/uL Baso # (Auto) 0.0 (0.0-0.1) K/uL Nucleated RBC % 0.0 /100WBC Nucleated RBCs # 0 K/uL Sodium 142 (136-145) mmol/L Potassium 4.3 (3.5-5.1) mmol/L Chloride 109 H (98-107) mmol/L Carbon Dioxide 26.3 (21.0-32.0) mmol/L BUN 15 (7.0-18.0) mg/dL Creatinine 0.8 (0.6-1.0) mg/dL Est Cr Clr Drug Dosing 74.23 mL/min Estimated GFR (MDRD) > 60.0 ml/min Glucose 93 (74-106) mg/dL Calcium 8.6 (8.5-10.1) mg/dL Total Bilirubin 1.7 H (0.2-1.0) mg/dL AST 16 (15-37) IU/L ALT 26 (14-63) IU/L Alkaline Phosphatase 70 (46-116) U/L Troponin I < 0.050 (0.000-0.056) ng/mL Total Protein 7.6 (6.4-8.2) g/dL Albumin 3.7 (3.4-5.0) g/dL Globulin 3.9 (2.6-4.0) g/dL Albumin/Globulin Ratio 0.9 (0.9-1.6) Lipase 194 (73-393) U/L Meds: Medications Discontinued Medications Generic Name Dose Route Start Last Admin Trade Name Freq PRN Reason Stop Dose Admin Sodium Chloride 1,000 mls @ 999 mls/hr 12/16/18 08:19 12/16/18 08:41 Normal Saline IV 12/16/18 09:19 Not Given STAT ONE Departure - Departure Time of Disposition: 10:03 Disposition: Home, Self-Care 01 Condition: Good Clinical Impression: Abdominal pain - Discharge Information Referrals: PCP,None [Primary Care Provider] - Forms: ED Department Discharge Additional Instructions: The following information is given to patients seen in the emergency department who are being discharged to home. This information is to outline your options for follow-up care. We provide all patients seen in our emergency department with a follow-up referral. The need for follow-up, as well as the timing and circumstances, are variable depending upon the specifics of your emergency department visit. If you don't have a primary care physician on staff, we will provide you with a referral. We always advise you to contact your personal physician following an emergency department visit to inform them of the circumstance of the visit and for follow-up with them and/or the need for any referrals to a consulting specialist. The emergency department will also refer you to a specialist when appropriate. This referral assures that you have the opportunity for follow-up care with a specialist. All of these measure are taken in an effort to provide you with optimal care, which includes your follow-up. Under all circumstances we always encourage you to contact your private physician who remains a resource for coordinating your care. When calling for follow-up care, please make the office aware that this follow-up is from your recent emergency room visit. If for any reason you are refused follow-up, please contact the [facility] emergency department at and asked to speak to the emergency department charge nurse. - My Orders Last 24 Hours: My Active Orders 12/16/18 08:19 HCG QUALITATIVE,URINE [URCHEM] Stat UA RFX MIRACLE AND CULT IF INDIC [URIN] Stat - Assessment/Plan Last 24 Hours: My Active Orders 12/16/18 08:19 HCG QUALITATIVE,URINE [URCHEM] Stat UA RFX MIRACLE AND CULT IF INDIC [URIN] Stat
--- NOTE | 2018-12-16 09:00 | CR ---
EXAMINATION: Abdomen HISTORY: Pain COMPARISON: None TECHNIQUE: Upright view FINDINGS: No free air under the diaphragm. The lung bases are clear. There is a nonobstructive bowel gas pattern. Cholecystectomy clips are noted. No abnormal calcifications project over the kidneys. Visualized osseous structures appear intact. IMPRESSION: No acute findings noted within the abdomen.
[2018-12-16 09:25] LABS: CHLORIDE,CL 109 mmol/L (98-107); SODIUM,NA 142 mmol/L (136-145)
== END 2018-12-16 10:15 | disposition home or self-care (01) ==
LOC: MW.ED 08:17
DX: R10.13 Epigastric pain (principal); Z88.2 Allergy status to sulfonamides; Z88.8 Allergy status to other drugs, medicaments and biological substances
CPT/HCPCS: 36415; 74018; 74018-26; 80053; 83690; 84484; 85025; 99283-25

== ENCOUNTER 2018-12-23 10:10 | Emergency (ER) | payer MEDICAID, OTHER ==
[2018-12-23] MEDS ORDERED: Sodium Chloride 0.9% 1,000 ML IV ONE (10:19)
--- NOTE | 2018-12-23 11:14 | EDM.PDOC ---
ED HPI GENERAL MEDICAL PROBLEM - General Chief Complaint: Flank Pain Stated Complaint: BACK PAIN IN KIDNEY Time Seen by Provider: 12/23/18 10:16 Source of Information: Reports: Patient History Limitations: Reports: No Limitations - History of Present Illness INITIAL COMMENTS - FREE TEXT/NARRATIVE: HISTORY AND PHYSICAL: History of present illness: Patient is a 43-year-old female who presents to the emergency room with complaints of dysuria and right flank pain 2 days. She states she does frequently get UTIs and is concerned she now has a bladder infection. Patient denies any fever, chills, headache, change in vision, syncope or near syncope. Denies any chest pain, back pain, shortness of breath or cough. Denies any abdominal pain, nausea, vomiting, diarrhea, or constipation. Has not noted any blood in urine or stool. Patient has been eating and drinking appropriately. Review of systems: As per history of present illness and below otherwise all systems reviewed and negative. Past medical history: As per history of present illness and as reviewed below otherwise noncontributory. Surgical history: As per history of present illness and as reviewed below otherwise noncontributory. Social history: See social history for further information Family history: As per history of present illness and as reviewed below otherwise noncontributory. Physical exam: General: Well-developed and well-nourished 43-year-old female. Alert and oriented. Nontoxic appearing and in no acute distress. HEENT: Atraumatic, normocephalic, pupils equal and reactive bilaterally, negative for conjunctival pallor or scleral icterus, mucous membranes moist, TMs normal bilaterally, throat clear, neck supple, nontender, trachea midline. No drooling or trismus noted. No meningeal signs. No hot potato voice noted. Lungs: Clear to auscultation, breath sounds equal bilaterally, chest nontender. Heart: S1S2, regular rate and rhythm without overt murmur Abdomen: Soft, nondistended, nontender. Negative for masses. Negative for costovertebral tenderness. Pelvis: Stable nontender. Genitourinary: Deferred. Rectal: Deferred. Skin: Intact, warm, dry. No lesions or rashes noted. Extremities: Atraumatic, moves all extremities per self without difficulty or deficits, negative for cords or calf pain. Neurovascular unremarkable. Neuro: Awake, alert, oriented. Cranial nerves II through XII unremarkable. Cerebellum unremarkable. Motor and sensory unremarkable throughout. Exam nonfocal. Notes: We'll give patient 1 g Rocephin IM and treat with outpatient oral antibiotics and Pyridium. Supportive care measures were reviewed and discussed. Voices understanding and is agreeable to plan of care. Denies any further questions or concerns at this time. Diagnostics: UA Therapeutics: Rocephin IM Prescription: Cipro Pyridium Impression: UTI Plan: 1. Increase your oral fluids 2. Take your medication as directed 3. Follow up with your primary care provider as we discussed. Return to the ED as needed and as discussed. Definitive disposition and diagnosis as appropriate pending reevaluation and review of above. RIght FLank Pain Score (Numeric/FACES): 10 - Related Data Allergies Allergy/AdvReac Type Severity Reaction Status Date / Time sulfamethoxazole Allergy Difficulty Verified 12/23/18 10:57 [From ] Breathing trimethoprim [From ] Allergy Difficulty Verified 12/23/18 10:57 Breathing Home Meds: Home Meds . 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 History: Reports: None Neurological History: Reports: Migraines Psychiatric History: Reports: Anxiety Endocrine/Metabolic History: Reports: None Hematologic History: Reports: None Immunologic History: Reports: None Oncologic (Cancer) History: Reports: Bone, Cervix, Other (See Below) Other Oncologic History: stomach cancer Dermatologic History: Reports: None - Infectious Disease History Infectious Disease History: Reports: Chicken Pox - Past Surgical History Head Surgeries/Procedures: Reports: None HEENT Surgical History: Reports: None Cardiovascular Surgical History: Reports: None Respiratory Surgical History: Reports: None GI Surgical History: Reports: None Female Surgical History: Reports: Hysterectomy Endocrine Surgical History: Reports: None Neurological Surgical History: Reports: None Musculoskeletal Surgical History: Reports: None Oncologic Surgical History: Reports: None Dermatological Surgical History: Reports: None Social & Family History - Family History Family Medical History: Noncontributory - Tobacco Use Smoking Status *Q: Never Smoker - Caffeine Use Caffeine Use: Reports: Coffee - Recreational Drug Use Recreational Drug Use: No ED ROS GENERAL - Review of Systems Review Of Systems: ROS reveals no pertinent complaints other than HPI. ED EXAM, RENAL/ - Physical Exam Exam: See Below (See dictation) Course - Vital Signs Last Recorded V/S: Last Vital Signs Temp 95 F L 12/23/18 10:54 Pulse 79 12/23/18 10:54 Resp 16 12/23/18 10:54 BP 112/74 12/23/18 10:54 Pulse Ox 98 12/23/18 10:54 - Orders/Labs/Meds Orders: Active Orders 24 hr Category Date Time Status CULTURE URINE [RM] Stat Lab 12/23/18 10:59 Received Lidocaine 1% [Xylocaine 1%] Med 12/23/18 11:38 Once 2.1 ml INJECT ONETIME ONE cefTRIAXone [Rocephin] Med 12/23/18 11:38 Once 1 gm IM ONETIME ONE Labs: Laboratory Tests 12/23/18 Range/Units 10:59 Urine Color YELLOW Urine Appearance CLEAR Urine pH 6.0 (5.0-8.0) Ur Specific [place] 1.020 (1.001-1.035) Urine Protein NEGATIVE (NEGATIVE) mg/dL Urine Glucose (UA) NEGATIVE (NEGATIVE) mg/dL Urine Ketones NEGATIVE (NEGATIVE) mg/dL Urine Occult Blood NEGATIVE (NEGATIVE) Urine Nitrite POSITIVE H (NEGATIVE) Urine Bilirubin NEGATIVE (NEGATIVE) Urine Urobilinogen 1.0 (<2.0) EU/dL Ur Leukocyte Esterase NEGATIVE (NEGATIVE) Urine RBC 0-1 (0-2/HPF) Urine WBC 0-1 (0-5/HPF) Ur Epithelial Cells OCCASIONAL (NONE-FEW) Urine Bacteria 2+ H (NEGATIVE) Meds: Medications Discontinued Medications Generic Name Dose Route Start Last Admin Trade Name Freq PRN Reason Stop Dose Admin Sodium Chloride 1,000 mls @ 999 mls/hr 12/23/18 10:19 12/23/18 11:14 Normal Saline IV 12/23/18 11:19 Not Given STAT ONE Departure - Departure Time of Disposition: 11:41 Disposition: Home, Self-Care 01 Clinical Impression: UTI, Urinary tract infectious disease - Discharge Information Instructions: Urinary Tract Infection, Adult, [id number] Referrals: PCP,None [Primary Care Provider] - Forms: ED Department Discharge Additional Instructions: The following information is given to patients seen in the emergency department who are being discharged to home. This information is to outline your options for follow-up care. We provide all patients seen in our emergency department with a follow-up referral. The need for follow-up, as well as the timing and circumstances, are variable depending upon the specifics of your emergency department visit. If you don't have a primary care physician on staff, we will provide you with a referral. We always advise you to contact your personal physician following an emergency department visit to inform them of the circumstance of the visit and for follow-up with them and/or the need for any referrals to a consulting specialist. The emergency department will also refer you to a specialist when appropriate. This referral assures that you have the opportunity for follow-up care with a specialist. All of these measure are taken in an effort to provide you with optimal care, which includes your follow-up. Under all circumstances we always encourage you to contact your private physician who remains a resource for coordinating your care. When calling for follow-up care, please make the office aware that this follow-up is from your recent emergency room visit. If for any reason you are refused follow-up, please contact the [facility] Emergency Department at and asked to speak to the emergency department charge nurse. [facility] [address] [place] [id number] [address] [phone] 1. Increase your oral fluids 2. Take your medication as directed 3. Follow up with your primary care provider as we discussed. Return to the ED as needed and as discussed. - My Orders Last 24 Hours: My Active Orders 12/23/18 10:59 CULTURE URINE [RM] Stat 12/23/18 11:38 Lidocaine 1% [Xylocaine 1%] 2.1 ml INJECT ONETIME ONE cefTRIAXone [Rocephin] 1 gm IM ONETIME ONE - Assessment/Plan Last 24 Hours: My Active Orders 12/23/18 10:59 CULTURE URINE [RM] Stat 12/23/18 11:38 Lidocaine 1% [Xylocaine 1%] 2.1 ml INJECT ONETIME ONE cefTRIAXone [Rocephin] 1 gm IM ONETIME ONE
[2018-12-23] MEDS ORDERED: Lidocaine 1% 20 ML MDV INJECT ONE (11:38)
[2018-12-23] MEDS ORDERED: cefTRIAXone 1 GM Vial IM ONE (11:38)
[2018-12-23] MEDS ORDERED: Lidocaine 1% 2 ML ONE (11:50)
== END 2018-12-23 12:39 | disposition home or self-care (01) ==
LOC: MW.ED 10:10
DX: N39.0 Urinary tract infection, site not specified (principal); Z88.8 Allergy status to other drugs, medicaments and biological substances; Z88.1 Allergy status to other antibiotic agents
CPT/HCPCS: 81001; 87086; 96372; 99284; J0696; J2001; 87088; 87186; 99283